=== PATIENT | female | born 1990 | race Two or more races ===

== ENCOUNTER 2020-03-01 22:16 | Emergency (ER) | payer MEDICAID ==
[~2020-03-01] VITALS: Ht 160 cm; Wt 79.0 kg
[2020-03-01 22:27] VITALS: BP 102/62
[2020-03-01] MEDS ORDERED: IBUPROFEN 600MG TABLET PO ONE (23:00)
== END 2020-03-02 01:25 | disposition home or self-care (01) ==
LOC: ER 22:36
DX: S46.911A Strain of unspecified muscle, fascia and tendon at shoulder and upper arm level, right arm, initial encounter (principal); S20.211A Contusion of right front wall of thorax, initial encounter; S63.601A Unspecified sprain of right thumb, initial encounter; V43.62XA Car passenger injured in collision with other type car in traffic accident, initial encounter; Y93.9 Activity, unspecified; Y92.410 Unspecified street and highway as the place of occurrence of the external cause
CPT/HCPCS: 71101; 73030; 73140; 81025; 99284

== ENCOUNTER 2024-01-05 22:57 | Emergency (ER) | payer MEDICAID ==
[~2024-01-05] VITALS: Ht 160 cm; Wt 84.0 kg
[2024-01-05 23:23] VITALS: BP 160/70; PULSE 91; RESP 20; TEMP 98.5; O2SAT 100
[2024-01-06] MEDS ORDERED: TOPUD MT (02:16)
[2024-01-06] MEDS ORDERED: TRAM50TA3 MT (02:17)
[2024-01-06] MEDS: KETOROLAC 60MG/2ML VIAL IM ONE (02:26)
[2024-01-06] MEDS: KETOROLAC 30MG/ML VIAL IM NR (02:27)
== END 2024-01-06 02:43 | disposition home or self-care (01) ==
LOC: ER 22:57 → UNDOADMIN 01-06 12:18 → 8WST 01-06 12:18
DX: S83.8X1A Sprain of other specified parts of right knee, initial encounter (principal); X58.XXXA Exposure to other specified factors, initial encounter; Y93.89 Activity, other specified; Y92.89 Other specified places as the place of occurrence of the external cause; Y99.8 Other external cause status
CPT/HCPCS: 99283; 73562; 96372; J1885